=== PATIENT | female | born 1990 | race Caucasian/White ===

== ENCOUNTER 2020-12-23 19:53 | Emergency (ER) | payer MEDICAID ==
[~2020-12-23] VITALS: Ht 165.1 cm; Wt 65.9 kg
[2020-12-23 20:09] VITALS: BP 120/81; Ht 165.1 cm; Wt 65.9 kg
[2020-12-23] MEDS ORDERED: VISTARIL25 MG PO (22:08)
== END 2020-12-23 22:18 | disposition home or self-care (01) ==
LOC: D.ER 19:53
DX: F41.9 Anxiety disorder, unspecified (principal)